=== PATIENT | male | born 1985 | race Two or more races ===

== ENCOUNTER 2024-06-07 14:36 | Emergency (ER) | payer MEDICAID ==
[~2024-06-07] VITALS: Ht 172.7 cm; Wt 127.0 kg
[2024-06-07] MEDS ORDERED: TDAP DIPH,PERTUSS,TET VAC/PF 0.5 ML DISP.SYRIN IM ONE (15:07)
[2024-06-07] MEDS ORDERED: NEOMY/BACITRA/POLYMYXIN B OINT UD PACKET TP ONE (15:57)
[2024-06-07] MEDS: NEOMY/BACITRA/POLYMYXIN B OINT UD PACKET TP ONE (15:59)
[2024-06-07] MEDS: TDAP DIPH,PERTUSS,TET VAC/PF 0.5 ML DISP.SYRIN IM ONE (16:26)
[2024-06-07 17:10] VITALS: BP 140/73; TEMP 97.9; O2SAT 98
== END 2024-06-07 16:55 | disposition home or self-care (01) ==
LOC: ER 14:36
DX: S91.331A Puncture wound without foreign body, right foot, initial encounter (principal); F17.200 Nicotine dependence, unspecified, uncomplicated; X58.XXXA Exposure to other specified factors, initial encounter; Y93.89 Activity, other specified; Y92.89 Other specified places as the place of occurrence of the external cause; Y99.8 Other external cause status
CPT/HCPCS: 73620; 90715; A4606; A4663

== ENCOUNTER 2024-06-16 13:36 | Emergency (ER) | payer MEDICAID, OTHER ==
[~2024-06-16] VITALS: Ht 175.3 cm; Wt 132.2 kg
[2024-06-16] MEDS ORDERED: IBUP200C5 PO (13:54)
[2024-06-16 14:14] VITALS: BP 121/74; O2SAT 98
== END 2024-06-16 14:15 | disposition home or self-care (01) ==
LOC: ER 13:36
DX: S91.331D Puncture wound without foreign body, right foot, subsequent encounter (principal); F17.200 Nicotine dependence, unspecified, uncomplicated; Z48.02 Encounter for removal of sutures; X58.XXXD Exposure to other specified factors, subsequent encounter
CPT/HCPCS: A4606; A4663